=== PATIENT | female | born 1990 | race American Indian/Alaskan Native ===

== ENCOUNTER 2018-01-27 09:41 | Emergency (ER) | payer BC, OTHER ==
[2018-01-27] MEDS ORDERED: Acetaminophen 325 MG Tab PO ONE (09:54)
--- NOTE | 2018-01-27 10:01 | EDM.PDOC ---
ED HPI GENERAL MEDICAL PROBLEM - General Chief Complaint: Fever Stated Complaint: fever [id number] Time Seen by Provider: 01/27/18 09:45 Source of Information: Reports: Patient History Limitations: Reports: No Limitations - History of Present Illness INITIAL COMMENTS - FREE TEXT/NARRATIVE: This 27 yo female patient reports to the ED with a fever and sore throat. The patient reports her symptoms started yesterday (fever at about 1400, but sore throat before that). The patient reports she took aspirin which helped her fever for about 1 hour, but her symptoms came right back. Onset Date: 01/26/18 Duration: Constant, Getting Worse Location: Reports: Neck, Generalized Quality: Reports: Ache, Sharp Severity: Moderate Improves with: Reports: Medication Worsens with: Reports: None Context: Reports: Other Associated Symptoms: Reports: Fever/Chills Treatments [employer]: Reports: Aspirin (last dose was at midnight) Throat Pain Score (Numeric/FACES): 7 - Related Data Allergies Allergy/AdvReac Type Severity Reaction Status Date / Time No Known Allergies Allergy Verified 01/27/18 10:04 Home Meds: Home Meds . [No Known Home Meds] 01/27/18 [History] ED ROS ENT - Review of Systems Review Of Systems: ROS reveals no pertinent complaints other than HPI. ED EXAM, ENT - Physical Exam Exam: See Below Exam Limited By: No Limitations General Appearance: Alert, WD/WN, Moderate Distress Eye Exam: Bilateral Eye: EOMI, Normal Inspection, PERRL Ears: Normal External Exam, Normal Canal, Hearing Grossly Normal, Normal TMs Nose: Normal Inspection, Normal Mucousa, No Blood Mouth/Throat: Pharyngeal Erythema, Tonsillar Erythema, Tonsillar Exudates, Tonsillar Swelling Head: Atraumatic, Normocephalic Neck: Lymphadenopathy (L) Respiratory/Chest: No Respiratory Distress, Lungs Clear, Normal Breath Sounds, No Accessory Muscle Use, Chest Non-Tender Cardiovascular: Normal Peripheral Pulses, Regular Rate, Rhythm, No Edema, No Gallop, No JVD, No Murmur, No Rub GI/Abdominal: Normal Bowel Sounds, Soft, Non-Tender, No Organomegaly, No Distention, No Abnormal Bruit, No Mass (Female) Exam: Deferred Rectal (Female) Exam: Deferred Back: Normal Inspection, Full Range of Motion Extremities: Normal Inspection, Normal Range of Motion, Non-Tender, No Pedal Edema, Normal Capillary Refill Neurological: Alert, Oriented, CN II-XII Intact, Normal Cognition, Normal Gait, Normal Reflexes, No Motor/Sensory Deficits Psychiatric: Normal Affect, Normal Mood Skin: Increased Warmth Lymphatic: No Adenopathy Course - Vital Signs Last Recorded V/S: Last Vital Signs Temp 39.8 C H 01/27/18 09:55 Pulse 115 H 01/27/18 09:55 Resp 16 01/27/18 09:55 BP 147/80 H 01/27/18 09:55 Pulse Ox 98 01/27/18 09:55 - Orders/Labs/Meds Meds: Medications Discontinued Medications Generic Name Dose Route Start Last Admin Trade Name Freq PRN Reason Stop Dose Admin Acetaminophen 650 mg 01/27/18 09:54 01/27/18 10:01 Tylenol PO 01/27/18 09:55 650 mg NOW ONE Administration Penicillin G Procaine/Benzathine 1.2 millunits 01/27/18 10:10 Bicillin C-R 600/600 IM 01/27/18 10:11 ONETIME ONE Departure - Departure Time of Disposition: 10:11 Disposition: Home, Self-Care 01 Condition: Fair Clinical Impression: Strep pharyngitis - Discharge Information *PRESCRIPTION DRUG MONITORING PROGRAM REVIEWED*: Not Applicable *COPY OF PRESCRIPTION DRUG MONITORING REPORT IN PATIENT HIWOT: Not Applicable Instructions: Strep Throat, [id number] Forms: ED Department Discharge Care Plan Goals: The patient was advised of the examination and lab results during the visit. The patient was given an injection of Bicillin while in the ED. The patient was discharged with a script for Azithromycin (250 mg) #6 to take 2 by mouth on day 1 and 1 by mouth on days 2-5. The patient was encouraged to take Tylenol or ibuprofen for temporary symptom relief. If the patient has any additional symptoms or concerns, the patient should follow-up with her primary care facility or return to the emergency department.
[2018-01-27] MEDS ORDERED: Penicillin G Benzathine/Procaine 600-600 1.2 Millunits/2 ML Syringe IM ONE (10:10)
== END 2018-01-27 10:35 | disposition home or self-care (01) ==
LOC: DL.ED 09:41
DX: J02.0 Streptococcal pharyngitis (principal)
CPT/HCPCS: 87430; 96372; 99282; A9270; J0558

== ENCOUNTER 2023-09-12 21:41 | Emergency (ER) | payer BC ==
[2023-09-12] MEDS: Oxymetazoline 0.05% Nasal Spray 30 ML Bottle NAS ONE (22:40)
[2023-09-12] MEDS: Take Home: Benzonatate 100 MG, 6 Cap Pack PO ONE (22:40)
[2023-09-12] MEDS: Ketorolac 30 MG/ML SDV IM ONE (22:40)
[2023-09-12] MEDS: Take Home: Ondansetron 4 MG Tab.DIS, 5 Tab Pack PO ONE (22:40)
[2023-09-12] MEDS: guaiFENesin/Dextromethorphan 100-10 MG/5 ML Soln 5 ML Cup PO ONE (22:41)
== END 2023-09-12 22:50 | disposition home or self-care (01) ==
LOC: DL.ED 21:41
DX: B34.9 Viral infection, unspecified (principal)
CPT/HCPCS: 96372; 99282; 99283; A9270; J1885; Q0162